=== PATIENT | female | born 1950 | race Caucasian/White ===

== ENCOUNTER 2016-08-22 09:47 | Observation (INO) | payer BC, MEDICARE ==
[~2016-08-22] VITALS: Ht 157.5 cm; Wt 57.1 kg
[2016-08-22] VITALS (12 sets, daily range): BP systolic 118–148; BP diastolic 49–75; PULSE 1–77; RESP 18–20; TEMP 96.4–98.3; O2SAT 98–100
[~2016-08-22 09:47] MED LIST: ASCO500 PO; ASPI1TAB7 PO; CITRTAB7 PO; GLUCTAB6 PO; LEVO.1 PO; MSM1000C4 PO; PROP20TA3 PO; TAB-TAB PO
[2016-08-22] MEDS ORDERED: [UNRECOGNIZED DRUG - OTHER] (10:04)
[2016-08-22] MEDS ORDERED: MULT1CHW70 PO (10:04)
[2016-08-22] MEDS ORDERED: ASPI-110 PO (10:04)
[2016-08-22] MEDS ORDERED: PROP20TA3 PO (10:04)
[2016-08-22] MEDS ORDERED: GLUCOSAMINE PO (10:04)
[2016-08-22] MEDS ORDERED: MSM1000C PO (10:04)
[2016-08-22] MEDS ORDERED: LEVO.1 PO (10:04)
[2016-08-22] MEDS ORDERED: VITA500C9 CHEW (10:04)
[2016-08-22] MEDS ORDERED: CITRTAB7 PO (10:04)
[2016-08-22] MEDS ORDERED: VITATAB11 (10:04)
--- NOTE | 2016-08-22 10:27 | PD ---
HPI Chief Complaint: Chest Pain Time Seen by Provider: 10:07 Travel History International Travel<30 days: No Contact w/Intl Traveler<30days: No Traveled to known affect area: No History of Present Illness HPI 66yo F with PMH of GERD, hypothyroidism, and arrhythmia presents to the ED with c/o left chest pain since yesterday. States it was sharp but now there's a pulling sensation. States it feels like last time when she had mastitis. Denies any fever, sob, n/v, abdominal pain, weakness or numbness. States that it is different from her normal GERD and that she has not had any cardiac work up in 20 years. States she had arrhythmia 20 years ago and has not had a problem so curb setter states she can follow up with regular PMD. She called her PMD and was sent here for further evaluation of her chest pain. PFSH Past Medical History Cardiovascular Problems: Yes (ARRYTHMIAS) Gastrointestinal Disorders: Yes (IBS) GERD: Yes Genitourinary: Yes (PYELONEPHRITIS) Medical other: Yes (RHEUMATIC FEVER, DARIEL SLAUGHTERS) Thyroid Disease: Yes (GRAVES DX) Past Surgical History Appendectomy: Yes Oral Surgery: Yes (WISDOM TEETH) Tonsillectomy: Yes Social History Alcohol Use: No Tobacco Use: No Substance Use: No Allergies-Medications (Allergen,Severity, Reaction): Coded Allergies: Imitrex (Verified Allergy, Severe, swollen tongue/ vomiting, 08/22/16) Amoxicillin (Verified Allergy, Intermediate, hives, 08/22/16) Clindamycin (Verified Allergy, Intermediate, severe heartburn, 08/22/16) Erythromycin (Verified Allergy, Intermediate, vomiting/ diarrhea, 08/22/16) Reported Meds & Prescriptions Reported Meds & Active Scripts Active Reported [Glucosamine] 2 Tab PO DAILY [G/C] Citracal + D3 Maximum (Calcium Citrate-Vitamin D) 315-250 Mg-Unit Tab 1 Tab PO BID Aspirin 81 (Aspirin) 81 Mg Tabdr 81 Mg PO DAILY Multivitamin Adult (Multiple Vitamins W/ Minerals) 1 Chw Chw 1 Tab PO DAILY Vitamin C (Ascorbic Acid) 500 Mg Chew 500 Mg CHEW BID Msm (Methylsulfonylmethane) 1,000 Mg Cap 1,000 Mg PO BID Vitamin B Complex (B-Complex Vitamins) 1 Tab Propranolol (Propranolol HCl) 20 Mg Tab 20 Mg PO Q12HR Synthroid (Levothyroxine Sodium) 100 Mcg Tab 100 Mcg PO DAILY Review of Systems Except as stated in HPI: all other systems reviewed are Neg Physical Exam Narrative GENERAL: 66yo F not in distress. SKIN: Warm and dry. HEAD: Atraumatic. Normocephalic. NECK: Trachea midline. No JVD. CARDIOVASCULAR: Regular rate and rhythm. No murmur appreciated. BREAST: Left breast: No signs of infection. No erythema, nipple discharge. RESPIRATORY: No accessory muscle use. Clear to auscultation. Breath sounds equal bilaterally. GASTROINTESTINAL: Abdomen soft, non-tender, nondistended. Hepatic and splenic margins not palpable. MUSCULOSKELETAL: No obvious deformities. No clubbing. No cyanosis. No edema. NEUROLOGICAL: Awake and alert. No obvious cranial nerve deficits. Motor grossly within normal limits. Normal speech. PSYCHIATRIC: Appropriate mood and affect; insight and judgment normal. Data Data Last Documented VS Vital Signs Date Time Temp Pulse Resp B/P Pulse Ox O2 Delivery O2 Flow Rate FiO2 08/22/16 12:16 76 20 126/66 98 08/22/16 11:17 Nasal Cannula 2 08/22/16 09:56 98.3 Orders Basic Metabolic Panel (Bmp) (08/22/16 10:19) Ckmb (Isoenzyme) Profile (08/22/16 10:19) Complete Blood Count With Diff (08/22/16 10:19) Magnesium (Mg) (08/22/16 10:19) Prothrombin Time / Inr (Pt) (08/22/16 10:19) Act Partial Throm Time (Ptt) (08/22/16 10:19) Troponin I (08/22/16 10:19) Chest, Single Ap (08/22/16 10:19) Ecg Monitoring (08/22/16 10:19) Bilateral Bp Monitoring (08/22/16 10:19) Iv Access Insert/Monitor (08/22/16 10:19) Oximetry (08/22/16 10:19) Oxygen Administration (08/22/16 10:19) Aspirin (Aspirin) (08/22/16 10:30) Admit Order (Ed Use Only) (08/22/16 12:54) Labs Laboratory Tests Test 08/22/16 10:20 White Blood Count 6.1 TH/MM3 Red Blood Count 4.56 MIL/MM3 Hemoglobin 13.6 GM/DL Hematocrit 40.4 % Mean Corpuscular Volume 88.6 FL Mean Corpuscular Hemoglobin 29.7 PG Mean Corpuscular Hemoglobin 33.6 % Concent Red Cell Distribution Width 12.4 % Platelet Count 193 TH/MM3 Mean Platelet Volume 9.9 FL Neutrophils (%) (Auto) 68.6 % Lymphocytes (%) (Auto) 19.6 % Monocytes (%) (Auto) 9.1 % Eosinophils (%) (Auto) 1.8 % Basophils (%) (Auto) 0.9 % Neutrophils # (Auto) 4.1 TH/MM3 Lymphocytes # (Auto) 1.2 TH/MM3 Monocytes # (Auto) 0.6 TH/MM3 Eosinophils # (Auto) 0.1 TH/MM3 Basophils # (Auto) 0.1 TH/MM3 CBC Comment DIFF FINAL Differential Comment Prothrombin Time 11.0 SEC Prothromb Time International 1.0 RATIO Ratio Activated Partial 29.1 SEC Thromboplast Time Sodium Level 140 MEQ/L Potassium Level 3.8 MEQ/L Chloride Level 104 MEQ/L Carbon Dioxide Level 27.7 MEQ/L Anion Gap 8 MEQ/L Blood Urea Nitrogen 10 MG/DL Creatinine 0.63 MG/DL Estimat Glomerular Filtration 95 ML/MIN Rate Random Glucose 93 MG/DL Calcium Level 9.3 MG/DL Magnesium Level 2.4 MG/DL Total Creatine Kinase 67 U/L Troponin I LESS THAN 0.02 NG/ML MDM Medical Decision Making Medical Screen Exam Complete: Yes Emergency Medical Condition: Yes Interpretation(s) EKG: NSR 77bpm. Normal axis. TWI III. Differential Diagnosis 66yo F with atypical chest pain that is different from her regular GERD. Narrative Course 66yo F with atypical chest pain. Labs reviewed, no leukocytosis. Troponin negative. CXR showed no acute disease. Pt given aspirin 325mg. Although chest pain seems atypical, pt is 66 and has not had any cardiac work up recently. Will admit to chest pain center for low risk chest pain and do serial EKG and cardiac enzyme. Discussed with Dr. Munroe. Diagnosis Primary Impression: Chest pain Qualified Code: R07.9 - Chest pain, unspecified type Admitting Information Admitting Physician Requests: Observation Marta Mejia DO Aug 22, 2016 10:27 Marta Mejai DO Aug 22, 2016 10:27
[2016-08-22] MEDS ORDERED: ASPIRIN 325 MG TAB PO ONE (10:30)
[2016-08-22] MEDS ORDERED: SODIUM CHLORIDE 0.9% FLUSH 5 ML FLUSH IVF PRN ×2 (10:30→14:00)
[2016-08-22 10:37] LABS: AUTOMATED NEUTROPHIL # 4.1 TH/MM3 (1.8-7.7); BASOPHIL # 0.1 TH/MM3 (0-0.2); BASOPHIL % 0.9 % (0.0-2.0); EOSINOPHIL # 0.1 TH/MM3 (0-0.4); EOSINOPHIL % 1.8 % (0.0-4.0); HEMATOCRIT 40.4 % (35.0-46.0); HEMO FLAGS DIFF FINAL; LYMPH % 19.6 % (9.0-44.0); LYMPHOCYTE # 1.2 TH/MM3 (1.0-4.8); MEAN CELL VOLUME 88.6 FL (80.0-100.0); MEAN CORPUSCULAR HEMOGLOBIN 29.7 PG (27.0-34.0); MEAN CORPUSCULAR HGB CONC 33.6 % (32.0-36.0); MONO % 9.1 % (0.0-8.0); NEUT % 68.6 % (16.0-70.0); PLATELET COUNT 193 TH/MM3 (150-450); RED BLOOD COUNT 4.56 MIL/MM3 (4.00-5.30); RED CELL DISTRIBUTION WIDTH 12.4 % (11.6-17.2); WHITE BLOOD COUNT 6.1 TH/MM3 (4.0-11.0)
--- NOTE | 2016-08-22 10:47 | RADHPO ---
EXAM DATE/TIME: 08/22/2016 10:29 [facility] COMPARISON: No previous studies available for comparison. INDICATIONS : Chest pain MEDICAL HISTORY : None. SURGICAL HISTORY : None. ENCOUNTER: Initial ACUITY: 2 weeks PAIN SCORE: 10/10 LOCATION: Left chest under breast FINDINGS: A single view of the chest demonstrates the lungs to be symmetrically aerated without evidence of mas s, infiltrate or effusion. The cardiomediastinal contours are unremarkable. Osseous structures are intact. CONCLUSION: No acute disease. Murphy Tineo MD FACR on August 22, 2016 at 10:45 Board Certified Radiologist. This report was verified electronically.
[2016-08-22 10:51] LABS: CHLORIDE 104 MEQ/L (98-107); POTASSIUM 3.8 MEQ/L (3.5-5.1); SODIUM (NA) 140 MEQ/L (136-145)
[2016-08-22 10:54] LABS: ANION GAP 8 MEQ/L (5-15); BICARBONATE 27.7 MEQ/L (21.0-32.0); BLOOD UREA NITROGEN 10 MG/DL (7-18); MAGNESIUM 2.4 MG/DL (1.5-2.5)
[2016-08-22 10:55] LABS: APTT (PATIENT) 29.1 SEC (24.3-30.1)
[2016-08-22 10:57] LABS: GLOMERULAR FILTRATION RATE 95 ML/MIN (>89)
[2016-08-22 11:07] LABS: CREATINE KINASE 67 U/L (26-192)
[2016-08-22] MEDS ORDERED: CALCIUM CARBONATE 500 MG CHEWABLE TAB CHEW PRN (14:00)
[2016-08-22] MEDS ORDERED: NITROGLYCERIN 0.4 MG SL 25 TABS/BTL SL PRN (14:00)
[2016-08-22] MEDS ORDERED: MORPHINE SULFATE 4 MG/ML INJ IV PRN (14:00)
[2016-08-22] MEDS ORDERED: ONDANSETRON HCL 4 MG/2 ML VIAL IV PRN (14:00)
[2016-08-22] MEDS: FAMOTIDINE 20 MG TAB PO SCH ×2 (14:16→20:47)
[2016-08-22] MEDS: SODIUM CHLORIDE 0.9% FLUSH 5 ML FLUSH IVF SCH ×2 (14:17→20:47)
--- NOTE | 2016-08-22 14:21 | HHI.HP ---
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 She describes the pain as a tightness as well as a pressure sensation with occasional burning pain in the center of her chest that radiates up into her throat as well as around and underneath the left breast. She denies any associated diaphoresis, N/V, numbness/tingling, SOB , OSPINA or abdominal pain. She has significant GERD and has been unable to tolerate PPIs in the past and has managed well with [id number] Tums and Gas-X but this is no longer working for her. States her pain is worse after eating garlic and spicy foods and alleviated with sitting up and application of heating pad to the center of her chest. She denies any ill contacts or recent travel. She also denies any lower extremity edema. In regards to her arrhythmia, patient follows with her regular primary care physician as she has not had any problems. Review of Systems Constitutional: DENIES: Fatigue, Fever, Chills, Dizziness Endocrine: DENIES: Polydipsia, Polyuria Eyes: DENIES: Vision loss, Double Vision Ears, nose, mouth, throat: DENIES: Vertigo, Throat pain, Ear Pain Respiratory: DENIES: Cough, Wheezing, Shortness of breath Cardiovascular: COMPLAINS OF: Chest pain (stated in history of present illness) , DENIES: Palpitations, Syncope, Dyspnea on Exertion, Lower Extremity Edema Gastrointestinal: COMPLAINS OF: Constipation, DENIES: Abdominal pain, Diarrhea , Nausea, Vomiting Genitourinary: DENIES: Urinary frequency, Hematuria, Dysuria Musculoskeletal: COMPLAINS OF: Joint pain (bilateral hips and knees), DENIES: Back pain Integumentary: DENIES: Pruritus, Rash Hematologic/lymphatic: DENIES: Lymphadenopathy Immunologic/allergic: DENIES: Eczema, Urticaria Neurologic: COMPLAINS OF: Headache (chronic migraine sufferer), DENIES: Localized weakness, Paresthesias, Seizures Psychiatric: DENIES: Confusion, Depression Past Family Social History Past Medical History History of cardiac arrhythmias with multifocal PVCs, PACs GERD Hypothyroidism Bilateral hip and knee joint pain Migraines IBS - constipation type Past Surgical History Appendectomy Tonsillectomy [place] teeth extraction Reported Medications [Glucosamine] 2 Tab PO DAILY Citracal + D3 Maximum (Calcium Citrate-Vitamin D) 315-250 Mg-Unit Tab 1 Tab PO BID Aspirin 81 (Aspirin) 81 Mg Tabdr 81 Mg PO DAILY Multivitamin Adult (Multiple Vitamins W/ Minerals) 1 Chw Chw 1 Tab PO DAILY Vitamin C (Ascorbic Acid) 500 Mg Chew 500 Mg CHEW BID Msm (Methylsulfonylmethane) 1,000 Mg Cap 1,000 Mg PO BID Vitamin B Complex (B-Complex Vitamins) 1 Tab Propranolol (Propranolol HCl) 20 Mg Tab 20 Mg PO Q12HR Synthroid (Levothyroxine Sodium) 100 Mcg Tab 100 Mcg PO DAILY Metamucil Allergies: Coded Allergies: Imitrex (Verified Allergy, Severe, swollen tongue/ vomiting, 08/22/16) Amoxicillin (Verified Allergy, Intermediate, hives, 08/22/16) Clindamycin (Verified Allergy, Intermediate, severe heartburn, 08/22/16) Erythromycin (Verified Allergy, Intermediate, vomiting/ diarrhea, 08/22/16) Active Ordered Medications Current Medications Medications (Trade) Dose Ordered Sig/Lanny Route Start Time Stop Time Status Last Admin (NS Flush) 2 ml UNSCH PRN IVF 08/22/16 10:30 Family History Father in his 60s history of CAD, previous CABG, DM Mother, alive age 92, CAD, CHF, DM Brother and sister age 68 and 58 respectively, CAD Brother, DM Social History Patient denies any tobacco use, alcohol consumption or illicit drug use Physical Exam Vital Signs Vital Signs Date Time Temp Pulse Resp B/P Pulse Ox O2 Delivery O2 Flow Rate FiO2 08/22/16 13:27 97.9 63 20 135/75 100 08/22/16 12:16 76 20 126/66 98 08/22/16 11:17 71 18 124/59 100 Nasal Cannula 2 08/22/16 10:32 100 08/22/16 10:32 66 18 131/61 100 146/69 08/22/16 10:32 Nasal Cannula 2 08/22/16 09:56 98.3 77 20 148/74 100 Physical Exam GENERAL: This is a well-nourished, well-developed patient, in no apparent distress. Appears comfortable sitting up in hospital bed. at the bedside. SKIN: No rashes, ecchymoses or lesions. Cool and dry. HEAD: Atraumatic. Normocephalic. No temporal or scalp tenderness. EYES: Pupils equal round and reactive. Extraocular motions intact. No scleral icterus. No injection or drainage. ENT: Nose without bleeding, purulent drainage or septal hematoma. Throat without erythema, tonsillar hypertrophy or exudate. Uvula midline. Airway patent. NECK: Trachea midline. No JVD or lymphadenopathy. Supple, nontender, no meningeal signs. CARDIOVASCULAR: Regular rate and rhythm without murmurs, gallops, or rubs. RESPIRATORY: Clear to auscultation. Breath sounds equal bilaterally. No wheezes , rales, or rhonchi. GASTROINTESTINAL: Abdomen soft, non-tender, nondistended. No hepato-splenomegaly , or palpable masses. No guarding. MUSCULOSKELETAL: Extremities without clubbing, cyanosis, or edema. No joint tenderness, effusion, or edema noted. No calf tenderness. NEUROLOGICAL: Awake and alert. Cranial nerves II through XII intact. Motor and sensory grossly within normal limits. Five out of 5 muscle strength in all muscle groups. Normal speech. Laboratory Laboratory Tests Test 08/22/16 10:20 White Blood Count 6.1 Red Blood Count 4.56 Hemoglobin 13.6 Hematocrit 40.4 Mean Corpuscular Volume 88.6 Mean Corpuscular Hemoglobin 29.7 Mean Corpuscular Hemoglobin 33.6 Concent Red Cell Distribution Width 12.4 Platelet Count 193 Mean Platelet Volume 9.9 Neutrophils (%) (Auto) 68.6 Lymphocytes (%) (Auto) 19.6 Monocytes (%) (Auto) 9.1 Eosinophils (%) (Auto) 1.8 Basophils (%) (Auto) 0.9 Neutrophils # (Auto) 4.1 Lymphocytes # (Auto) 1.2 Monocytes # (Auto) 0.6 Eosinophils # (Auto) 0.1 Basophils # (Auto) 0.1 CBC Comment DIFF FINAL Differential Comment Prothrombin Time 11.0 Prothromb Time International 1.0 Ratio Activated Partial 29.1 Thromboplast Time Sodium Level 140 Potassium Level 3.8 Chloride Level 104 Carbon Dioxide Level 27.7 Anion Gap 8 Blood Urea Nitrogen 10 Creatinine 0.63 Estimat Glomerular Filtration 95 Rate Random Glucose 93 Calcium Level 9.3 Magnesium Level 2.4 Total Creatine Kinase 67 Troponin I LESS THAN 0.02 Result Diagram: 08/22/16 1020 08/22/16 1020 Imaging Last 24 hours Impressions Chest X-Ray 08/22/16 1019 Signed Impressions: Service Date/Time: Monday, August 22, 2016 10:29 - CONCLUSION: No acute disease. Murphy Tineo MD FACR Assessment and Plan Assessment and Plan Chest pain, atypical Admit to observation chest pain center Initial troponin negative Repeat troponins 2, q3h Serial EKGs Heart healthy diet Nothing by mouth after midnight Plan for nuclear stress test in a.m. Morphine and sublingual nitroglycerin when necessary Aspirin daily Obtain TSH and fasting lipid panel Supplemental oxygen when necessary History of multifocal PACs, PVCs Resume home dose of propanolol monitor on telemetry GERD Likely contributing to complaints of chest pain H/O intolerance to Nexium, N/V Tums, prn Zantac 150 mg by mouth twice a day Hypothyroidism Resume home Synthroid dose Obtain TSH level Written by Bindu Sotomayor, acting as scribe for Dr. Munroe on 08/22/16 at 14:13. Bindu Sotomayor Aug 22, 2016 14:21
[2016-08-22 15:00] LABS: CREATINE KINASE 62 U/L (26-192)
[2016-08-22 17:42] LABS: CREATINE KINASE 49 U/L (26-192)
[2016-08-22] MEDS: PROPRANOLOL HCL 20 MG TAB PO SCH (20:47)
[2016-08-23] VITALS: BP 116/49; PULSE 63; RESP 19; TEMP 97.2; O2SAT 98
[2016-08-23 04:00] VITALS: BP 126/58; PULSE 69; RESP 20; TEMP 97.5; O2SAT 99
[2016-08-23] MEDS ORDERED: LEVOTHYROXINE SODIUM 100 MCG TAB PO SCH (06:00)
[2016-08-23 08:00] VITALS: BP 102/75; PULSE 71; RESP 20; TEMP 97.4; O2SAT 100
[2016-08-23 08:15] VITALS: PULSE 80
[2016-08-23] MEDS: SODIUM CHLORIDE 0.9% FLUSH 5 ML FLUSH IVF SCH (08:16)
[2016-08-23] MEDS: PROPRANOLOL HCL 20 MG TAB PO SCH (08:20)
[2016-08-23] MEDS ORDERED: REGADENOSON INJ 0.4 MG/5 ML SYR IV ONE (10:11)
[2016-08-23 10:24] LABS: HDL CHOLESTEROL 66.4 MG/DL (40.0-60.0)
--- NOTE | 2016-08-23 11:41 | RADHPO ---
EXAM DATE/TIME: 08/23/2016 10:39 [facility] COMPARISON: No previous studies available for comparison. INDICATIONS : Left chest pain for 2 days. Angina. DOSE: 25.9 mCi Tc99m Myoview at stress. 8.7 mCi Tc99m Myoview at rest. 0.4 mg Lexiscan STRESS SYMPTOMS: Chest pressure, neck pressure, abdominal pain, palpitations and jaw paw. EJECTION FRACTION: 60% MEDICAL HISTORY : Gastroesophageal reflux disease. SURGICAL HISTORY : Tonsillectomy. Appendectomy. ENCOUNTER: Initial ACUITY: 2 days PAIN SCALE: 7/10 LOCATION: Left chest TECHNIQUE: The patient underwent pharmacologic stress with infusion of prescribed dose. Continuous ECG tracing was monitored during stress. Gated SPECT imaging was performed after stress and conventional SPECT i maging was performed at rest. The examination was performed on a SPECT/CT scanner, both attenuation and non-corrected datasets were reviewed. FINDINGS: DISTRIBUTION: The maximum perfused segment at stress is in the posterior-lateral wall. PERFUSION STUDY: The pattern of perfusion at stress is within normal limits. GATED STUDY: There is intact wall motion and thickening without hypokinetic or dyskinetic segments. CONCLUSION: Normal examination. RISK CATEGORY: Low (<1% Annual Mortality Rate) Obi Barbosa MD on August 23, 2016 at 11:38 Board Certified Radiologist. This report was verified electronically.
[2016-08-23 12:00] VITALS: BP 129/55; PULSE 66; RESP 20; TEMP 96; TEMP 96.6; O2SAT 99
[2016-08-23] MEDS ORDERED: RANI150T PO (12:10)
--- NOTE | 2016-08-23 13:42 | HHI.DCPOC ---
Discharge Care Plan Diagnosis: (1) GERD (gastroesophageal reflux disease) (2) Chest pain Your Health Problems Are: Chest Pain Goals to Promote Your Health * To prevent worsening of your condition and complications * To maintain your health at the optimal level Directions to Meet Your Goals Take your medications as prescribed Follow your dietary instruction Follow activity as directed Keep your appointments as scheduled Take your immunizations and boosters as scheduled If your symptoms worsen call your PCP, if no PCP go to Urgent Care Center or Emergency Room Smoking is Dangerous to Your Health. Avoid second hand smoke Call the 24-hour hour crisis hotline for domestic abuse at Bindu Sotomayor Aug 23, 2016 13:42
--- NOTE | 2016-08-23 13:52 | HHI.PR ---
Subjective Remarks Patient states she feels well today. No recurrence of chest pain overnight. No issues taking the Zantac. No other acute medical issues at this time. Objective Vitals Vital Signs Date Time Temp Pulse Resp B/P Pulse Ox O2 Delivery O2 Flow Rate FiO2 08/23/16 12:00 96.6 66 20 129/55 99 08/23/16 08:15 80 08/23/16 08:00 97.4 71 20 102/75 100 08/23/16 04:00 97.5 69 20 126/58 99 08/23/16 00:00 97.2 63 19 116/49 98 08/22/16 21:00 61 08/22/16 20:30 61 08/22/16 20:00 96.4 59 20 118/49 99 08/22/16 19:34 98 21 08/22/16 16:40 1 08/22/16 16:00 64 08/22/16 16:00 96.5 67 20 118/58 99 08/22/16 14:38 99 Nasal Cannula 2.00 I/O 08/22/16 08/22/16 08/22/16 08/23/16 08/23/16 08/23/16 06:59 14:59 22:59 06:59 14:59 22:59 Intake Total 0 ml 0 ml Output Total 100 ml Balance -100 ml 0 ml Intake Oral 0 ml 0 ml Output Urine Total 100 ml # Voids 1 1 # Bowel Movements 0 0 Result Diagram: 08/22/16 1020 08/22/16 1020 Imaging Last 48 hours Impressions Myocardial Perfusion Scan Nuc Med 08/23/16 0000 Signed Impressions: Service Date/Time: August 10:39 - CONCLUSION: Normal examination. RISK CATEGORY: Low (<1%% Annual Mortality Rate) Obi Barbosa MD Chest X-Ray 08/22/16 1019 Signed Impressions: Service Date/Time: Monday, August 22, 2016 10:29 - CONCLUSION: No acute disease. Murphy Tineo MD FACR Objective Remarks GENERAL: Well-nourished, well-developed patient in NAD. SKIN: Warm and dry. No rash. HEAD: Normocephalic. Atraumatic. EYES: Pupils equal and round. No scleral icterus. No injection or drainage. ENT: No nasal bleeding or discharge. Mucous membranes pink and moist. NECK: Supple. Trachea midline. CARDIOVASCULAR: Regular rate and rhythm. S1, S2 noted. No murmur appreciated. RESPIRATORY: No accessory muscle use. Clear to auscultation. Breath sounds equal bilaterally. GASTROINTESTINAL: Abdomen soft, non-tender, nondistended. Normoactive bowel sounds x4. MUSCULOSKELETAL: No obvious deformities. Extremities without clubbing, cyanosis , or edema. NEUROLOGICAL: Awake and alert. No obvious cranial nerve deficits. Motor grossly within normal limits. 5/5 muscle strength in bilateral upper and lower extremities. Normal speech. PSYCHIATRIC: Appropriate mood and affect; insight and judgment normal. Medications and IVs Active Medications Calcium Carbonate (Tums Chew) 500 mg Q2H PRN CHEW; Start 08/22/16 at 14:00; Stop 08/23/16 at 13:14; Status DC Famotidine (Pepcid) 20 mg Q12H PO Last administered on 08/22/16 20:47; Start 08/22/16 at 14:30; Stop 08/23/16 at 13:14; Status DC IV Flush (NS Flush) 2 ml BID IVF Last administered on 08/23/16 08:16; Start 08/22 at 14:00; Stop 08/23/16 at 13:14; Status DC IV Flush (NS Flush) 2 ml UNSCH PRN IVF; Start 08/22/16 at 14:00; Stop 08/23/16 at 13:14; Status DC Levothyroxine Sodium (Synthroid) 100 mcg DAILY@06 PO; Start 08/23/16 at 06:00; Stop 08/23/16 at 13:14; Status DC Morphine Sulfate (Morphine Inj) 2 mg Q4H PRN IV; Start 08/22/16 at 14:00; Stop 08/23/16 at 13:14; Status DC Nitroglycerin (Nitrostat Sl) 0.4 mg Q5M PRN SL; Start 08/22/16 at 14:00; Stop at 13:14; Status DC Ondansetron HCl (Zofran Inj) 4 mg Q6H PRN IV Last administered on 08/23/16 06: 28; Start 08/22/16 at 14:00; Stop 08/23/16 at 13:14; Status DC Propranolol HCl (Inderal) 20 mg Q12HR PO Last administered on 08/22/16 20:47; Start 08/22/16 at 21:00; Stop 08/23/16 at 13:14; Status DC Regadenoson (Lexiscan Inj) 0.4 mg STK-MED ONCE IV Last administered on 08/23/16 10:11; Start 08/23/16 at 10:11; Stop 08/23/16 at 10:12; Status DC A/P Assessment and Plan Chest pain, atypical Unlikely of cardiac origin with negative troponins 3, no ischemic EKG changes and nuclear MPS that is normal Okay to be discharged home Heart healthy diet Fasting lipid panel within normal limits History of multifocal PACs, PVCs Continue with home dose of propanolol GERD Likely contributing to complaints of chest pain H/O intolerance to Nexium, N/V Tums, prn Continue with Zantac 150 mg by mouth twice a day Hypothyroidism Continue with home Synthroid dose TSH level 0.381 Written by Bindu Sotomayor, acting as scribe for Dr. Nugent on 08/23/16 at 13: 50. Discharge Planning Discharge home in stable condition Condition on discharge: Improved Regular Diet as tolerated Ad Natali activity Rx written: Zantac Follow-up with primary care physician and aviation survival technician Bindu Sotomayor Aug 23, 2016 13:52
--- NOTE | 2016-08-23 21:28 | TR ---
Date Performed: 08/23/2016 Time Performed: 10:43:56 DOCTOR: Leslie Palma DRUG LIST: CLINICAL HISTORY: REASON FOR TEST: Chest pain REASON FOR ENDING: OBSERVATION: CONCLUSION: Lexiscan stress test was performed under standard four minute protocol. Radionuclid e was injected one minute prior to ending the test. No electrocardiographic abormalities were present to suggest ischemia. Nuclear imaging and interpretation are pending. COMMENTS:
--- NOTE | 2016-08-23 21:32 | EKG ---
Date Performed: 08/22/2016 Time Performed: 16:28:26 PTAGE: 66 years EKG: Sinus rhythm with PAC(s) rSr'(V1) - probable normal variant Extensive ST-T changes are nonspecific Borderline ECG Since PREVIOUS TRACING , no significant change noted PREVIOUS TRACIN08/22/2016 14.13 DOCTOR: Leslie Palma Interpretating Date/Time 08/23/2016 21:30:36
--- NOTE | 2016-08-23 21:33 | EKG ---
Date Performed: 08/22/2016 Time Performed: 14:13:18 PTAGE: 66 years EKG: Sinus rhythm with interpolated PVC(s). rSr'(V1) - probable normal variant Inferior and anterior ST-T changes are nonspecific Since previous tracing, no significant change noted Borderline ECG PREVIOUS TRACING : 08/22/2016 09.51 DOCTOR: Leslie Palma Interpretating Date/Time 08/23/2016 21:31:18
--- NOTE | 2016-08-24 15:10 | EKG ---
Date Performed: 08/22/2016 Time Performed: 09:51:50 PTAGE: 66 years EKG: Sinus rhythm Possible left atrial abnormality rSr'(V1) - probable normal variant Anterior T wave changes are nons pecific Borderline ECG NO PREVIOUS TRACING DOCTOR: Gerardo Emmanuel Interpretating Date/Time 08/24/2016 15:08:06
[2016-08-28] MEDS ORDERED: PANT20TA2 PO (13:20)
[2016-08-28] MEDS ORDERED: LEVO88TA2 PO (13:21)
[2016-10-30] MEDS ORDERED: LEVO100T5 PO (09:25)
== END 2016-08-23 13:10 | disposition home or self-care (01) ==
LOC: PHED 09:47 → PHEDA 12:54 → PH3A 13:18
PROVIDERS: ADMIT Family Medicine; ATTEND Family Medicine
DX: R07.9 Chest pain, unspecified (principal); K21.9 Gastro-esophageal reflux disease without esophagitis; E03.9 Hypothyroidism, unspecified; I49.9 Cardiac arrhythmia, unspecified; Z79.899 Other long term (current) drug therapy; K58.1 Irritable bowel syndrome with constipation; I49.3 Ventricular premature depolarization
CPT/HCPCS: 71010; 78452; 80048; 80061; 82550; 83735; 84443; 84484; 85025; 85610; 85730; 93005; 93017; 99285; A9502; G0378; J2405; J2785